=== PATIENT | female | born 1965 ===

== ENCOUNTER 2019-11-22 12:30 | Outpatient (REF) | payer BC, SELFPAY ==
[2019-11-22 22:07] LABS: HCT 45.4 % (36.0-46.0); HGB 15.3 g/dL (11.2-15.7); MCH 32.3 pg (27.0-33.0); MCHC 33.7 % (32.0-36.0); MPV 10.7 fL (8.0-11.0); Platelet Count 301 10^3/uL (130-400); RBC 4.73 10^6/uL (3.93-5.22); RDW 11.9 % (11.7-14.6); RDW-SD 42.3 fL; WBC 7.18 10^3/uL (4.4-10.8)
[2019-11-22 22:57] LABS: ESR 8 mm/hr (0-30)
== END 2019-11-22 12:50 ==
LOC: NCHCN 12:30
PROVIDERS: PCP Family Medicine; Visit Provider Nurse Practitioner Family
DX: L98.8 Other specified disorders of the skin and subcutaneous tissue (principal)
CPT/HCPCS: 85027; 85652

== ENCOUNTER 2023-02-05 12:21 | Outpatient (REF) | payer BC, SELFPAY ==
--- NOTE | 2023-02-05 14:30 | PAPFT_PTH ---
PATIENT: Marietta Mosley LOC: [facility]#:[id number] AGE/SX: 58/F ROOM: RE02/05/[address]: China Ram : 1965 BED: DIS: 02/05/2023 SPEC #: [id number] RECD: 02/08/23 13:38 STATUS: BELKIS REQ #: [id number] OUMOU: 02/05/23 14:[address]: China Ram DEPT[facility] Cytology RECD BY: Rupa Jaffe Tissues: 1 - CX/ENDOCX FOR PAP SMEARS Procedures: PAP THIN PREP/[facility] Screening HPV DNA PROBE Comments: [id number]
== END 2023-02-05 12:22 | disposition home or self-care (01) ==
LOC: NCHCN 12:21
PROVIDERS: PCP Family Medicine; Visit Provider Family Medicine
DX: Z12.4 Encounter for screening for malignant neoplasm of cervix (principal); Z00.00 Encounter for general adult medical examination without abnormal findings; Z01.419 Encounter for gynecological examination (general) (routine) without abnormal findings
CPT/HCPCS: 88142; 87624